=== PATIENT | male | born 1990 | race Caucasian/White ===

== ENCOUNTER 2019-08-29 14:36 | Inpatient (IN) | payer SELFPAY ==
[2019-08-29 14:43] VITALS: BMI 18.8
[2019-08-29 14:49] VITALS: BP 143/86; PULSE 97; RESP 18; TEMP 36.9; O2SAT 100
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
--- NOTE | 2019-08-29 15:00 | USCV_ITS ---
Juan Weiner Age: 29 Gender: M : 1990 Exam Date: 08/29/2019 15:45 Ordering Phys: Katie Lal Technologist: Thierry Aguilar Exam Location: [facility] [place], [place] Indication: COLD PAINFULL LT FOOT Risk Factors: Smoker Previous Vascular Surgery: None RIGHT LEFT BP: 143.0 / 86.00 BP: 143.0/ 86.00 0 0 Waveform Velocity (cm/s) Velocity (cm/s) Waveform Iliac Prox 82.8 Triphasic Iliac Mid 111.7 Triphasic Iliac Distal Triphasic 111.7 JAVASCRIPT UI DEVELOPER 101.2 Triphasic SFA Prox 102.5 Triphasic SFA Mid 110.4 Triphasic SFA Dist 107.8 Triphasic POP 69.2 Triphasic COO & CO FOUNDER 47.0 Triphasic DPA 44.4 Triphasic PRITI 1.0 FINDINGS BAKERS CYST LT POP FOSSA Hypoechoic area measuring 2.85 x 1.51 cm Normal resting PRITI and arterial Doppler waveform on the left side CONCLUSIONS No significant arterial obstruction on the left side, based on the above findings Features suggestive of a Oh's cyst, measuring 2.85 x 1.5 on the left side Dr Sakshi Moreno MD [facility] (Electronically Signed) Final Date: 29 Aug 2019 19:10 S
[2019-08-29 15:05] LABS: Basophils # 0.1 10^3/uL (0.0-0.1); Basophils % 0.5 %; Eosinophils # 0.1 10^3/uL (0.0-0.8); Eosinophils % 0.6 %; Hematocrit 43.8 % (42.0-52.0); Hemoglobin 14.5 g/dL (11.7-16.6); Lymphocytes # 1.9 10^3/uL (0.8-4.8); Mean Corpuscular HGB Conc 33.1 g/dL (30.0-36.0); Mean Corpuscular Hemoglobin 32.7 pg (28.0-34.0); Mean Corpuscular Volume 98.9 fL (80-94); Mean Platelet Volume 9.7 fL (7.4-10.4); Monocytes # 1.8 10^3/uL (0.2-0.9); Monocytes % 13.4 %; Neutrophils # 9.5 10^3/uL (1.8-7.7); Neutrophils % 71.1 %; Nucleated Red Blood Cells % 0 %; Platelet Count 267 10^3/cmm (130-400); Red Blood Count 4.43 10^6/uL (4.1-5.3); Red Cell Distribution Width 11.8 % (12.1-15.1); White Blood Count 13.3 10^3/uL (4.0-10.0)
[2019-08-29 15:25] LABS: Alanine Aminotransferase 36 U/L (0-41); Albumin Level 4.3 g/dL (3.5-5.2); Alkaline Phosphatase 106 IU/L (40-130); Anion Gap 27.8 (5-19); Aspartate Amino Transferase 53 U/L (0-40); Blood Urea Nitrogen 19 mg/dL (6-20); Calcium 10.2 mg/dL (8.5-10.5); Carbon Dioxide 22 mmol/L (22-29); Chloride 93 mmol/L (98-107); Creatinine Clr Calc Pharmacy 103.9481; Globulin 4.1 g/dL (1.3-4.6); Glomerular Filtration Rate 113.5 mL/min (90-130); Glucose 88 mg/dL (65-115); Osmolality Calculated 284 mOsm/kg (285-295); Potassium 3.8 mmol/L (3.5-5.1); Sodium 139 mmol/L (136-145); Total Protein 8.4 g/dL (6.6-8.7)
[2019-08-29 15:26] LABS: Acetaminophen < 5.0 ug/mL (10-30); Alcohol Level < 10 mg/dL (0-10); Salicylate < 0.3 mg/dL (3-10)
[2019-08-29 15:34] LABS: Amphetamines Screen Urine Positive (Negative); Barbiturates Screen Urine Negative (Negative); Benzodiazepines Screen Urine Negative (Negative); Cocaine Screen Urine Negative (Negative); Opiate Screen Urine Negative (Negative); PCP Screen Urine Negative (Negative); THC Screen Urine Positive (Negative)
[2019-08-29] MEDS: sodium chloride 0.9% 1,000 ML 999 ML IV (15:58)
[2019-08-29 17:58] VITALS: BP 126/87; PULSE 84; RESP 16; O2SAT 98
[2019-08-29 18:06] VITALS: BP 126/83; PULSE 90; RESP 20; TEMP 36.7; O2SAT 91
[2019-08-29] MEDS: blistex lip oint 7 gm Tube 1 APPLIC TOPICAL (19:42)
[2019-08-29] MEDS: nicotine 2 mg Gum BUCCAL (19:43)
[2019-08-29] MEDS: LORazepam 2 mg Tablet PO (20:52)
[2019-08-29] MEDS: acetaminophen 325 mg Tablet 650 MG PO (20:53)
--- NOTE | 2019-08-29 20:56 | PC.NURSE ---
ATIVAN ATIVAN 2 MG PO ADMINISTERED PER CIWA PROTOCOL. CIWA SCORE 10. WILL MONITOR FOR MEDICATION EFFECTIVENESS.
[2019-08-29 22:00] VITALS: BP 121/75; PULSE 86; RESP 18; TEMP 36.7; O2SAT 98
[2019-08-30 06:00] VITALS: BP 100/58; PULSE 93; RESP 17; TEMP 36.5; O2SAT 95
[2019-08-30] MEDS: folic acid 1 mg Tablet PO (09:03)
[2019-08-30] MEDS: multivitamin therapeutic Tablet 1 TAB PO (09:03)
[2019-08-30] MEDS: thiamine 100 mg Tablet PO (09:03)
[2019-08-30] MEDS: acetaminophen 325 mg Tablet 650 MG PO ×2 (09:05→19:39)
[2019-08-30] MEDS: nicotine 21 mg Patch 1 PATCH TRANSDERMA (10:52)
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
[2019-08-30 14:00] VITALS: BP 112/70; PULSE 90; RESP 18; TEMP 37.1; O2SAT 98
[2019-08-30] MEDS: blistex lip oint 7 gm Tube 1 APPLIC TOPICAL (19:40)
[2019-08-30] MEDS: hyDROXYzine 25 mg Capsule 50 MG PO (20:29)
[2019-08-30] MEDS: nicotine 2 mg Gum BUCCAL (20:29)
[2019-08-30 22:00] VITALS: BP 103/66; PULSE 90; RESP 17; TEMP 37.1; O2SAT 93
[2019-08-31 06:00] VITALS: BP 125/78; PULSE 85; RESP 17; TEMP 36.6; O2SAT 97
[2019-08-31] MEDS: acetaminophen 325 mg Tablet 650 MG PO ×2 (06:17→14:34)
[2019-08-31] MEDS: nicotine 2 mg Gum BUCCAL (06:17)
[2019-08-31] MEDS: blistex lip oint 7 gm Tube 1 APPLIC TOPICAL ×6 (09:02→20:54)
[2019-08-31] MEDS: thiamine 100 mg Tablet PO (09:02)
[2019-08-31] MEDS: folic acid 1 mg Tablet PO (09:02)
[2019-08-31] MEDS: multivitamin therapeutic Tablet 1 TAB PO (09:02)
[2019-08-31] MEDS: nicotine 21 mg Patch 1 PATCH TRANSDERMA (11:15)
[2019-08-31 14:00] VITALS: BP 111/76; PULSE 86; RESP 18; TEMP 36.7; O2SAT 98
--- NOTE | 2019-08-31 14:15 | P.PN_ITS ---
Subjective NPU Subjective: Interval history: Juan presents today continuing to report that he is not interested in medication. He certainly clear today and seeming less confused and psychotic. He is still not interested in medication and endorses a desire to leave sometime soon. He does report that he thinks he is having a flareup of gout that he says he has had before in the past. Otherwise he denies any issues. Mental Status Exam 2 MSE Comments: This is an underweight diminutive white male with adequate dress, limited grooming and improved eye contact. No abnormal movements. Except for psychomotor retardation which is improving. More cooperative with exam in no acute distress. Speech was more spontaneous and less decreased rate and volume. Mood described as okay affect less subdued. Thought process disorganized, thought content: Patient denied any suicidal or homicidal ideatio n, there were no delusions reported or noted, he did not appear to be attending to internal stimuli. Attention and concentration were improved and memory is unreliable but not formally tested. He is alert and oriented times person and place. Insight and judgment were impaired, but improving. Vitals/I&O/Wt Last Vital Signs Temp 97.9 F 08/31/19 06:00 Pulse 85 08/31/19 06:00 Resp 17 08/31/19 06:00 BP 125/78 08/31/19 06:00 Pulse Ox 97 08/31/19 06:00 Weight last 48 hrs Weight 54.431 kg Data NPU : 08/29/19 14:53 08/29/19 14:53 A&P Additional A&P Information (1) Drug-induced psychotic disorder: This is a 29-year-old white male with a long history of addiction who presents with psychosis either secondary to methamphetamine or possibly as an exacerbation to baseline psychosis who presents off of medication with no interest to initiate medication. 1. Continue current medication. We'll continue to offer medication to assist with psychosis. 2. Encourage individual, group and milieu therapy. 3. Continue every 15 minute checks for safety. 4. Will work with social work team on Monday to consider sober living options. We will encourage him to engage in a highest level of sober living treatment to which he is willing to commit. (2) Methamphetamine use: Attestations NPU Medical Necessity Statement*: Inpatient hospitalization is medically necessary in the clinically appropriate intervention at this time. We will evaluate for safety given him being on a 96 hour hold. We'll continue to offer medications a nd adjust as indicated. Likely length of stay 2-4 days. Coding Level of Care Code Acute Statement Services Representative for Elle Headley
[2019-08-31] MEDS: ibuprofen 600 mg Tablet PO (20:52)
[2019-08-31] MEDS: hyDROXYzine 25 mg Capsule 50 MG PO (20:54)
[2019-08-31 22:00] VITALS: BP 138/98; PULSE 95; RESP 18; TEMP 36.7; O2SAT 100
--- NOTE | 2019-08-31 22:42 | PC.NURSE ---
CIWA CIWA PROTOCOL REMOVED DUE TO CIWA SCORE OF ZERO FOR 48 HOURS.
[2019-09-01 06:00] VITALS: BP 117/78; PULSE 77; RESP 16; TEMP 36.6; O2SAT 97
[2019-09-01] MEDS: ibuprofen 600 mg Tablet PO ×2 (07:26→15:40)
[2019-09-01] MEDS: folic acid 1 mg Tablet PO (08:32)
[2019-09-01] MEDS: multivitamin therapeutic Tablet 1 TAB PO (08:32)
[2019-09-01] MEDS: thiamine 100 mg Tablet PO (08:32)
[2019-09-01 14:00] VITALS: BP 119/87; PULSE 89; RESP 18
--- NOTE | 2019-09-01 14:51 | PM.NPN ---
Subjective NPU Subjective: Interval history: Juan presents today reporting that he is doing okay. He has been struggling with the pain in his foot and so we did a hospitalist consult. He said the consultants has been there and they are about to get blood from him. He was very thankful for the assessment given the pain that he was in. He continues to report a desire not to start medication but he does not really have a plan for how he cannot avoid repeating his current situation other than just stopping. Medications: Reviewed: Yes Mental Status Exam MSE Comments: This is an underweight diminutive white male with adequate dress, limited grooming and improved eye contact. No abnormal movements. Except for psychomotor retardation which is improving. More cooperative with exam in no acute distress. Speech was more spontaneous and more normal rate and volume. Mood described as better affect less subdued. Thought process organized, thought content: Patient denied any suicidal or homicidal ideation, there were no delusions reported or noted, he did not appear to be attending to internal stimuli. Attention and concentration were improved and memory is more reliable but none were formally tested. He is alert and oriented times three. Insight and judgment were improving. Vitals/I&O/Wt Last Vital Signs Temp 98.9 F 09/01/19 22:00 Pulse 87 09/01/19 22:00 Resp 18 09/01/19 22:00 BP 138/91 09/01/19 22:00 Pulse Ox 95 09/01/19 22:00 Weight last 48 hrs Weight 57.323 kg Data NPU : 09/01/19 17:35 09/01/19 17:35 A&P Additional A&P Information (1) Drug-induced psychotic disorder: This is a 29-year-old white male with a long history of addiction who presents with psychosis either secondary to methamphetamine or possibly as an exacerbation to baseline psychosis who presents off of medication with no interest to initiate medication. 1. Continue current medication. 2. Encourage individual, group and milieu therapy. 3. Continue every 15 minute checks for safety. 4. Will work with social work team on Monday to consider sober living options. We will encourage him to engage in a highest level of sober living treatment to which he is willing to commit. 5. Follow hospitalists recommendations. (2) Methamphetamine use: Attestations NPU Medical Necessity Statement*: Inpatient hospitalization is medically necessary in the clinically appropriate intervention at this time. We will evaluate for safety given him being on a 96 hour hold. We'll continue to offer medications and adjust as indicated. Likely length of stay 1-3 days. Consider discharge tomorrow. Coding Level of Care Code Acute Superintendent Operating for Elle Headley
[2019-09-01] MEDS: nicotine 2 mg Gum BUCCAL ×3 (15:43→19:38)
--- NOTE | 2019-09-01 17:23 | P.CONIM_ITS ---
Providers/Reason For Consult Consulting Physican/Specialty*: Dr. Kelly Reason for Consult*: Gouty flare Attending Physician: Evaristo Kelly MD History of Present Illness History of Present Illness Juan Weiner is a 29 year old male with a past medical history of drug- induced psychotic disorder, methamphetamine use, alcohol use, smoker, history of asthma, history of gout who presents to [facility] for psychotic episode. Hospitalist team was consulted for right foot swelling, erythema, tenderness concerning for gouty flare. Patient states that he has a history of gout, responds well to the steroids, his brother also has gout, his gout occurs in multiple joints sometimes. Currently his gout attack is in his right lateral foot, there is erythema, swelling, tenderness, pain with ambulation, pain with range of motion. Patient states that he drinks alcohol fairly regularly, a sixpack daily, denies over consumption of red meat or shellfish, denies using medications at home that would cause a gouty flares, denies any renal failure, denies any history of type 2 diabetes, does have a history of asthma Review of Systems Const: Denies: fever, chills, fatigue or malaise Eyes: Denies: change in vision or blurry vision ENMT: Denies: nasal congestion Resp: Denies: shortness of breath, productive cough, non-productive cough or wheezing GI: Denies: abdominal pain, nausea, vomiting, vomiting blood, diarrhea, constipation, blood in stool or black tarry stool : Denies: flank pain, difficulty urinating, painful urination or urinary frequency Musc: Denies: neck pain or back pain Neuro: Denies: headache, dizziness or vertigo Endo: Denies: excessive urination or excessive thirst Meds/Allergies Home Medications and Allergies Home Medications Medication Instructions Recorded Confirmed Last Taken Type No Known Home Medications 08/29/19 08/29/19 Unknown History Allergies Allergy/AdvReac Type Severity Reaction Status Date / Time cefaclor [From Replaced By [facility]] Allergy Unknown Verified 08/29/19 14:49 Penicillins Allergy Unknown Verified 08/29/19 14:49 Sulfa (Sulfonamide Allergy Unknown Verified 08/29/19 14:49 Antibiotics) Current Medications Current Medications Generic Name Dose Route Start Last Admin Trade Name Freq PRN Reason Stop Dose Admin Acetaminophen 650 mg 08/29/19 18:06 08/31/19 14:34 Tylenol PO 650 mg Q4H PRN Administration MILD PAIN Camphor/Menthol/Phenol 1 applic 08/29/19 18:06 08/31/19 20:54 Blistex TOPICAL 1 applic Q1H PRN Administration DRYNESS Folic Acid 1 mg 08/30/19 09:00 09/01/19 08:32 Folic Acid PO 1 mg DAILY GARRICK Administration Hydroxyzine Pamoate 50 mg 08/29/19 18:06 08/31/19 20:54 Vistaril PO 50 mg Q6H PRN Administration ANXIETY Ibuprofen 600 mg 08/31/19 20:17 09/01/19 15:40 Motrin PO 600 mg Q6H PRN Administration MODERATE PAIN Multivitamins Therapeutic 1 tab 08/30/19 09:00 09/01/19 08:32 Multivitamin Tab PO 1 tab DAILY GARRICK Administration Nicotine 1 patch 08/29/19 18:06 08/31/19 11:15 Nicoderm 21 Mg Patch TRANSDERMA 1 patch DAILY PRN Administration NICOTINE WITHDRAWAL Nicotine Polacrilex 2 mg 08/29/19 18:06 09/01/19 15:43 Nicorette BUCCAL 2 mg Q2H PRN Administration NICOTINE WITHDRAWAL Thiamine Mononitrate 100 mg 08/30/19 09:00 09/01/19 08:32 Vitamin B-1 PO 100 mg DAILY GARRICK Administration PFSH Acute PFSH: Medical History (Updated 09/01/19 @ 17:26 by Vincent Dillon MD) History of asthma History of gout Family History (Updated 09/01/19 @ 17:26 by Vincent Dillon MD) Brother Gout Social History (Updated 09/01/19 @ 17:26 by Vincent Dillon MD) Smoking and tobacco status: current every day smoker Alcohol intake: current Substance/Drug Use: current Vitals/I&O/Wt Last Vital Signs Temp 97.8 F 09/01/19 06:00 Pulse 89 09/01/19 14:00 Resp 18 09/01/19 14:00 BP 119/87 09/01/19 14:00 Pulse Ox 97 09/01/19 06:00 Weight last 48 hrs Weight 57.323 kg Physical Exam Const: COMMON NORMALS: no apparent distress and oriented x3 HENMT: COMMON NORMALS: normocephalic HEAD & SCALP: normocephalic Neck/C-Spine: COMMON NORMALS: no JVD Resp: COMMON NORMALS: normal respiratory effort, no retractions, no use of accessory muscles and clear to auscultation bilaterally AUSCULTATION: clear to auscultation bilaterally Cardio: COMMON NORMALS: no JVD, regular rate, regular rhythm, S1 normal heart sound and S2 normal heart sound RATE: regular rate RHYTHM: regular rhythm HEART SOUNDS: S1 normal and S2 normal GI: COMMON NORMALS: normal to inspection, nondistended, normoactive bowel sounds, soft to palpation, non-tender, no hepatosplenomegaly, no masses and no bruits PALPATION: Yes soft and Yes no hepatosplenomegaly Extremity: COMMON NORMALS: normal capillary refill, no clubbing, cyanosis or edema, no calf tenderness and no pedal edema NARRATIVE EXTREMITY EXAM: Right foot, lateral aspect, under the fifth digit, area of erythema, tenderness, swelling, slight warmth Neuro: COMMON NORMALS: oriented x3 Psych: COMMON NORMALS: mental status grossly normal A&P Assessment and plan (1) Gout flare: -CBC, CMP, uric acid, CRP -We will do x-ray of the right foot -Prednisone 40 mg daily, followed by taper -Naproxen 500 mg twice daily for breakthrough pain -Advised to abstain from alcohol, shellfish, dark meats -Follow-up with primary care provider in the month for allopurinol to prevent gouty attacks Status: Acute (2) History of asthma: Status: Acute (3) Methamphetamine use: Status: Acute (4) Drug-induced psychotic disorder: Status: Acute Qualifiers: Complication of substance-induced condition: with hallucinations Qualified Code(s): F19.951 - Other psychoactive substance use, unspecified with psychoactive substance-induced psychotic disorder with hallucinations Coding Level of Care Code Acute Universal Banker for [facility] Fwd Diagnoses Gout flare M10.9 History of asthma Z87.09 Methamphetamine use F15.10 Drug-induced psychotic disorder F19.951 Complication of substance-induced condition: with hallucinations
[2019-09-01] MEDS: predniSONE 20 mg Tablet 40 MG PO (17:32)
[2019-09-01] MEDS: naproxen 500 mg Tablet PO (17:37)
[2019-09-01 17:53] LABS: Basophils % 0.6 %; Eosinophils # 0.2 10^3/uL (0.0-0.8); Eosinophils % 4.5 %; Hematocrit 44.4 % (42.0-52.0); Hemoglobin 14.5 g/dL (11.7-16.6); Lymphocytes # 1.2 10^3/uL (0.8-4.8); Lymphocytes % 21.9 %; Mean Corpuscular HGB Conc 32.7 g/dL (30.0-36.0); Mean Corpuscular Hemoglobin 32.9 pg (28.0-34.0); Mean Corpuscular Volume 100.7 fL (80-94); Neutrophils # 2.9 10^3/uL (1.8-7.7); Neutrophils % 53.6 %; Nucleated Red Blood Cells % 0 %; Platelet Count 282 10^3/cmm (130-400); Red Blood Count 4.41 10^6/uL (4.1-5.3); Red Cell Distribution Width 11.9 % (12.1-15.1); White Blood Count 5.4 10^3/uL (4.0-10.0)
[2019-09-01 18:11] LABS: Alanine Aminotransferase 30 U/L (0-41); Albumin Level 3.9 g/dL (3.5-5.2); Alkaline Phosphatase 83 IU/L (40-130); Anion Gap 14.3 (5-19); Aspartate Amino Transferase 27 U/L (0-40); Blood Urea Nitrogen 7 mg/dL (6-20); Calcium 9.5 mg/dL (8.5-10.5); Carbon Dioxide 30 mmol/L (22-29); Chloride 100 mmol/L (98-107); Globulin 3.2 g/dL (1.3-4.6); Glomerular Filtration Rate 158.2 mL/min (90-130); Glucose 60 mg/dL (65-115); Osmolality Calculated 284 mOsm/kg (285-295); Potassium 4.3 mmol/L (3.5-5.1); Sodium 140 mmol/L (136-145); Total Bilirubin 0.2 mg/dL (0.15-1.2); Total Protein 7.1 g/dL (6.6-8.7); Uric Acid 5.4 mg/dL (3.4-7.0)
[2019-09-01 18:52] LABS: C Reactive Protein 43.3 mg/L (0.0-4.9)
--- NOTE | 2019-09-01 21:48 | PC.NURSE ---
pt given nicorette gum per request.
[2019-09-01 22:00] VITALS: BP 138/91; PULSE 87; RESP 18; TEMP 37.2; O2SAT 95
[2019-09-01] MEDS: hyDROXYzine 25 mg Capsule 50 MG PO (22:43)
[2019-09-02 06:00] VITALS: BP 103/66; PULSE 76; RESP 18; TEMP 36.6; O2SAT 98
--- NOTE | 2019-09-02 06:00 | XR_ITS ---
WS: [id number] RIGHT FOOT: 2 VIEW(S) TECHNIQUE: AP and lateral. HISTORY: gout right foot COMPARISON: None available. No acute fracture or dislocation. Normal tarsal/metatarsal alignment. Mild degenerative changes at the first metatarsophalangeal joint. No overhanging margins or erosions There is soft tissue edema at the first metatarsophalangeal joint and over the fifth metatarsal head. No osteomyelitis or foreign body. XR/XR foot RT 2V [id number] IMPRESSION: 1. Mild degenerative changes at the first metatarsophalangeal joint with assoc iated soft tissue. Early changes of gout are possibilities without erosions. 2. No fracture.
[2019-09-02] MEDS: nicotine 2 mg Gum BUCCAL ×3 (07:51→12:27)
[2019-09-02] MEDS: predniSONE 20 mg Tablet 40 MG PO (08:01)
[2019-09-02] MEDS: folic acid 1 mg Tablet PO (08:01)
[2019-09-02] MEDS: thiamine 100 mg Tablet PO (08:01)
[2019-09-02] MEDS: multivitamin therapeutic Tablet 1 TAB PO (08:01)
--- NOTE | 2019-09-02 10:19 | P.PN_ITS ---
Subjective Subjective: Interval history: This morning patient was examined, states that his right foot is feeling much better, the steroids did the trick, does complain of right ear pain Vitals/I&O/Wt Last Vital Signs Temp 97.8 F 09/02/19 06:00 Pulse 76 09/02/19 06:00 Resp 18 09/02/19 06:00 BP 103/66 09/02/19 06:00 Pulse Ox 98 09/02/19 06:00 Weight last 48 hrs Weight 57.323 kg Physical Exam Const: COMMON NORMALS: no apparent distress and oriented x3 HENMT: COMMON NORMALS: normocephalic HEAD & SCALP: normocephalic EXTERNAL AUDITORY CANAL: EAC abnormal (Irritation and tenderness of right external auditory canal,) EAC laterality: right Neck/C-Spine: COMMON NORMALS: no JVD Resp: COMMON NORMALS: normal respiratory effort, no retractions, no use of accessory muscles and clear to auscultation bilaterally AUSCULTATION: clear to auscultation bilaterally Cardio: COMMON NORMALS: no JVD, regular rate, regular rhythm, S1 normal heart sound and S2 normal heart sound RATE: regular rate RHYTHM: regular rhythm HEART SOUNDS: S1 normal and S2 normal GI: COMMON NORMALS: normal to inspection, nondistended, normoactive bowel sounds, soft to palpation, non-tender, no hepatosplenomegaly, no masses and no bruits PALPATION: Yes soft and Yes no hepatosplenomegaly Extremity: COMMON NORMALS: normal capillary refill, no clubbing, cyanosis or edema, no calf tenderness and no pedal edema Neuro: COMMON NORMALS: oriented x3 Psych: COMMON NORMALS: mental status grossly normal Data : 09/01/19 17:35 09/01/19 17:35 A&P Assessment and plan (1) Gout flare: -Needs prednisone taper 40 for 5 days, 30 for 5 days, 20 for 5 days 10 for 5 days, 5 for 5 days and stop -Naproxen 500 mg twice daily for breakthrough pain -Advised to abstain from alcohol, shellfish, dark meats -Follow-up with primary care provider in the month for allopurinol to prevent gouty attacks Status: Acute (2) History of asthma: Status: Acute (3) Methamphetamine use: Status: Acute (4) Drug-induced psychotic disorder: Status: Acute Qualifiers: Complication of substance-induced condition: with hallucinations Qualified Code(s): F19.951 - Other psychoactive substance use, unspecified with psychoactive substance-induced psychotic disorder with hallucinations (5) Right otitis externa: Prescribe Ciprodex eardrop Status: Acute Attestations Medical Necessity Statement*: During hospitalization, gouty flare, right otitis externa, drug-induced psychosis Coding Level of Care Code Acute Classifications Officer Cc/Cm for [facility] Fwd Diagnoses Gout flare M10.9 History of asthma Z87.09 Methamphetamine use F15.10 

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
[2019-09-02 13:16] VITALS: BP 103/66; PULSE 76; RESP 18; TEMP 36.6; O2SAT 98
== END 2019-09-02 15:49 | disposition home or self-care (01) | DRG 897 ==
LOC: ER 16:18 → NP 16:19
PROVIDERS: Emergency Medicine; Family Medicine; Admitting Provider Psychiatry & Neurology Psychiatry; Emergency Provider Physician Assistant; Visit Provider Psychiatry & Neurology Psychiatry
DX: F15.951 Other stimulant use, unspecified with stimulant-induced psychotic disorder with hallucinations (principal); M79.672 Pain in left foot; G89.29 Other chronic pain; M25.562 Pain in left knee; F17.210 Nicotine dependence, cigarettes, uncomplicated; F15.90 Other stimulant use, unspecified, uncomplicated; M10.9 Gout, unspecified; H60.91 Unspecified otitis externa, right ear
CPT/HCPCS: 12345; 36415; 73620; 80053; 80306; 80307; 84550; 85025; 86140; 93926; 99284; A9270; J7030; J7512